=== PATIENT | male | born 1990 | race African-American/Black ===

== ENCOUNTER 2017-07-26 02:38 | Emergency (ER) | payer MEDICAID ==
[~2017-07-26] VITALS: Ht 167.6 cm; Wt 77.2 kg
[2017-07-26 02:42] VITALS: BP 117/75
[2017-07-26] MEDS ORDERED: LIDOCAINE-MPF 1%, 2ML ONE (03:12)
[2017-07-26] MEDS ORDERED: HYDROcodone/APAP 5/325 TABLET ONE (03:13)
[2017-07-26] MEDS ORDERED: LIDOCAINE-MPF 1%, 2ML INFIL ONE (03:30)
[2017-07-26] MEDS ORDERED: HYDROcodone/APAP 5/325 TABLET PO ONE (03:30)
== END 2017-07-26 04:22 | disposition home or self-care (01) ==
LOC: ED 03:45
DX: K04.7 Periapical abscess without sinus (principal)
CPT/HCPCS: 41800; 99283

== ENCOUNTER 2018-02-08 19:30 | Emergency (ER) | payer SELFPAY ==
[~2018-02-08] VITALS: Ht 167.6 cm; Wt 77.5 kg
[2018-02-08 19:40] VITALS: BP 119/73
[2018-02-08] MEDS ORDERED: LIDOCAINE-MPF 1%, 5ML ONE (19:57)
[2018-02-08] MEDS ORDERED: LIDOCAINE 1%, 10ML INFIL ONE (20:00)
== END 2018-02-08 21:15 | disposition home or self-care (01) ==
LOC: ED 20:16
DX: T16.2XXA Foreign body in left ear, initial encounter (principal); F12.10 Cannabis abuse, uncomplicated; X58.XXXA Exposure to other specified factors, initial encounter; Y93.89 Activity, other specified; Y92.89 Other specified places as the place of occurrence of the external cause; Y99.8 Other external cause status
CPT/HCPCS: 69200; 99284